=== PATIENT | male | born 1970 | race Hispanic/Latino ===

== ENCOUNTER 2017-09-02 15:25 | Inpatient (IN) | payer OTHER ==
[2017-09-02] MEDS ORDERED: ASPIRIN PO ONE (16:24)
[2017-09-02 16:48] LABS: Basophils # (Auto) 0.1 K/mm3 (0.0-0.1); Basophils % (Auto) 0.6 % (0.0-1.8); Eosinophils # (Auto) 0.1 K/mm3 (0.0-0.4); Eosinophils % (Auto) 0.7 % (0.0-4.3); Hematocrit 43.1 % (35.5-45.6); Hemoglobin 14.2 gm/dl (11.8-15.2); Lymphocytes # (Auto) 1.5 K/mm3 (1.2-5.4); Lymphocytes % (Auto) 13.9 % (13.4-35.0); Mean Corpuscular HGB Conc 33 % (32-34); Mean Corpuscular Hemoglobin 28 pg (28-32); Mean Corpuscular Volume 85 fl (84-94); Monocytes # (Auto) 0.7 K/mm3 (0.0-0.8); Platelet Count 235 K/mm3 (140-440); Red Blood Count 5.07 M/mm3 (3.65-5.03); Red Cell Distribution Width 15.1 % (13.2-15.2)
--- NOTE | 2017-09-02 17:07 | Emergency Department Report ---
ED General Adult HPI - General Chief complaint: Chest Pain Stated complaint: CHEST PAIN Time Seen by Provider: 09/02/17 16:33 Source: patient, staffing and scheduling coordinator Mode of arrival: Stretcher Limitations: No Limitations - History of Present Illness Initial comments: 47-year-old diabetic with history of chest pain evaluation 10 years ago at [facility] doesn't remember the doctor's ,patient says they did it as a preop for an amputation for dm toes, has some kind of stress test he says he never followed up but they did end up performing surgery so he thinks was okay. He started with a chest pain syndrome today around 1:00 started getting some symptoms into his left arm radiated down the fingers with some heaviness and tightness name short of breath symptoms were better now or they resolved when EMS picked him up and gave him an aspirin and some nitrates he is pain-free now , here eval cp and radiation into l arm, does hx of chronic b shoulder pain and oa, he's not sure if the sx into his l arm are related to that or new into l ue and into l wrist and fingers, no sob pain fress now no other complaints. -: hour(s), unknown Radiation: extremity Severity scale (0 -10): 0 Quality: other (pain-free now symptoms were heavy) Improves with: rest Worsens with: movement Associated Symptoms: chest pain, shortness of breath. denies: confusion, diaphoresis, fever/chills, headaches, loss of appetite, malaise, nausea/vomiting , rash, seizure, syncope, weakness - Related Data Allergies Allergy/AdvReac Type Severity Reaction Status Date / Time morphine Allergy Vomiting Verified 09/02/17 16:15 ED Review of Systems ROS: Stated complaint: CHEST PAIN Other details as noted in HPI Comment: All other systems reviewed and negative Eyes: denies: eye discharge, vision change ENT: denies: dental pain, hearing loss, epistaxis Respiratory: denies: cough, orthopnea, SOB with exertion, SOB at rest, stridor, wheezing Cardiovascular: chest pain, dyspnea on exertion. denies: palpitations, orthopnea, edema, syncope Endocrine: no symptoms reported Gastrointestinal: denies: nausea, vomiting, diarrhea, constipation, hematemesis , melena, hematochezia Musculoskeletal: denies: arthralgia, myalgia Neurological: denies: weakness, numbness, paresthesias, confusion, abnormal gait , vertigo Psychiatric: denies: auditory hallucinations, visual hallucinations, homicidal thoughts, suicidal thoughts Hematological/Lymphatic: denies: easy bruising ED Past Medical Hx - Past Medical History Hx Hypertension: Yes Hx Diabetes: Yes - Social History Smoking Status: Never Smoker Substance Use Type: None ED Physical Exam - General Limitations: No Limitations General appearance: alert, in no apparent distress, anxious - Head Head exam: Present: atraumatic, normocephalic - Eye Eye exam: Present: normal appearance, PERRL, EOMI - ENT ENT exam: Present: normal exam, normal orophraynx - Neck Neck exam: Present: normal inspection. Absent: tenderness, meningismus - Respiratory Respiratory exam: Present: rhonchi. Absent: respiratory distress, wheezes, rales, stridor, chest wall tenderness, accessory muscle use, decreased breath sounds, prolonged expiratory - Cardiovascular Cardiovascular Exam: Present: regular rate, normal rhythm, normal heart sounds - GI/Abdominal GI/Abdominal exam: Present: soft. Absent: distended, tenderness, guarding, rebound, rigid, mass, bruit, pulsatile mass - Extremities Exam Extremities exam: Present: normal inspection, tenderness, normal capillary refill, other (tenderness to the joints bilateral upper extremity ? forearm tenderness left). Absent: calf tenderness - Back Exam Back exam: Present: normal inspection. Absent: tenderness, CVA tenderness (R), CVA tenderness (L), muscle spasm, paraspinal tenderness, vertebral tenderness - Neurological Exam Neurological exam: Present: alert, oriented X3, CN II-XII intact, normal gait. Absent: motor sensory deficit - Psychiatric Psychiatric exam: Present: anxious. Absent: homicidal ideation, suicidal ideation ED Course Vital Signs 09/02/17 09/02/17 09/02/17 16:16 16:23 17:00 Temperature 98.0 F Pulse Rate 91 H 90 Respiratory 18 15 15 Rate Blood Pressure 135/80 Blood Pressure 127/85 [Right] O2 Sat by Pulse 97 99 Oximetry 09/02/17 22:01 Temperature Pulse Rate 89 Respiratory Rate Blood Pressure 130/76 Blood Pressure [Right] O2 Sat by Pulse Oximetry - Reevaluation(s) Reevaluation #1: 09/02/17 22:21 Patient was pain-free and ED EKG was nondiagnostic however trop was slightly elevated.case was discussed with Dr. Baldwin and Dr. Ugalde of hospital service , Dr. Ugalde did evaluate the patient in ED ED Medical Decision Making - Lab Data Result diagrams: 09/02/17 16:29 09/02/17 16:29 - EKG Data -: EKG Interpreted by Me EKG shows normal: sinus rhythm - EKG Data Interpretation: nonspecific ST-T wave alla - Radiology Data Radiology results: report reviewed - Medical Decision Making Chest x-ray no acute process EKG nondiagnostic. Patient is pain-free. He'll need further workup for chest pain in a diabetic patient that is worrisome for angina. Symptoms were present for approximately 30 minutes to an hour and half according to the patient and will need rule out for ACS and further evaluation Critical care attestation.: If time is entered above; I have spent that time in minutes in the direct care of this critically ill patient, excluding procedure time. ED Disposition Clinical Impression: Chest pain Disposition: DC-09 OP ADMIT IP TO THIS HOSP Is pt being admited?: Yes Condition: Stable Instructions: Chest Pain (ED) Referrals: PRIMARY CAREMD [Primary Care Provider] - 3-5 Days Time of Disposition: 22:25
[2017-09-02 17:08] LABS: BUN/Creatinine Ratio 22; Blood Urea Nitrogen 24 mg/dL (9-20); Calcium 9.1 mg/dL (8.4-10.2); Hemolysis Index 31
[2017-09-02] MEDS ORDERED: NITRO-BID 2% TP ONE ×2 (18:21→21:50)
--- NOTE | 2017-09-02 19:21 | XRay Report ---
FINAL REPORT EXAM: XR CHEST ROUTINE 2V HISTORY: cp TECHNIQUE: Chest, two views PRIORS: None. FINDINGS: The heart size is normal. Mediastinal contours are normal. Pulmonary vasculature is not congested. The lungs are clear. There are no pleural effusion seen. There is no evidence of pneumothorax. IMPRESSION: There is no acute abnormality identified.
[2017-09-02] MEDS ORDERED: PERCOCET 5/325 PO ONE (21:49)
[2017-09-02] MEDS ORDERED: PERCOCET 5/325 ONE (21:50)
[2017-09-02] MEDS ORDERED: TYLENOL PO PRN (22:48)
[2017-09-02] MEDS ORDERED: ZOFRAN IV PRN (22:48)
[2017-09-02] MEDS ORDERED: DULCOLAX PR PRN (22:48)
[2017-09-02] MEDS ORDERED: D50W (25GM) Syringe IV PRN (22:48)
[2017-09-02] MEDS ORDERED: MILK OF MAGNESIA PO PRN (22:48)
--- NOTE | 2017-09-02 22:52 | History and Physical Report ---
History of Present Illness Date of examination: 09/02/17 History of present illness: 47-year-old man with a history of hypertension, diabetes, obesity, see emergency room with complaints of chest pain, left chest radiating to the left arm, described as aching feeling, constant, symptoms started today, intensity 5/ 10, he cannot identify exacerbating or relieving factors. Admits to shortness of breath, no nausea vomiting, diaphoresis or palpitation. Review Of Systems: Constitutional: no weight loss Ears, eyes, nose, mouth and throat: no nasal congestion, no nasal discharge, no sinus pressure, blurry vision, diplopia Neck: No neck pain or rigidity. Cardiovascular: No palpitations Respiratory: No cough Gastrointestinal: No abdominal pain, hematochezia Genitourinary : no dysuria, frequency , hematuria Musculoskeletal: no muscle ache Integumentary: no rash, no pruritis Neurological: no parathesias, focal weakness Endocrine: no cold or heat intolerance, no polyuria or polydipsia Hematologic/Lymphatic: no easy bruising, no easy bleeding, no gland swelling Allergic/Immunologic: no urticaria, no angioedema. PAST MEDICAL HISTORY: Hypertension, diabetes, obesity PAST SURGICAL HISTORY: toes amputated from the left foot SOCIAL HISTORY: Social alcohol, no tobacco or drugs FAMILY HISTORY: Hypertension Medications and Allergies Allergies Allergy/AdvReac Type Severity Reaction Status Date / Time morphine Allergy Vomiting Verified 09/02/17 16:15 Exam - Physical Exam Narrative exam: Gen. appearance: Patient lying in bed, no apparent distress HEENT: Normocephalic, atraumatic, pupils equally round and reactive to light, extraocular movement intact, and no sclericterus,. No JVD or thyromegaly or nodule,neck supple, no carotid bruit ,mucous membranes moist, no exudate or erythema Heart: S1, S2, regular rate and rhythm Lungs: Clear to auscultation bilaterally, breathing comfortable Abdomen: Positive bowel sounds, nontender, nondistended, no organomegaly Extremity: No edema, cyanosis, clubbing Skin: No rash, nodules, warm, dry Neuro: Oriented 3, cranial nerves II-12 intact, speech is fluent, motor and sensory intact - Constitutional Vitals: Temp Pulse Resp BP Pulse Ox 98.0 F 89 15 130/76 99 09/02/17 16:16 09/02/17 22:01 09/02/17 17:00 09/02/17 22:01 09/02/17 16:23 Results - Labs CBC & Chem 7: 09/02/17 16:29 09/02/17 16:29 Labs: Abnormal lab results 09/02/17 09/02/17 09/02/17 Range/Units 16:29 16:29 16:34 RBC 5.07 H (3.65-5.03) M/mm3 Seg Neutrophils % 77.8 H (40.0-70.0) % Seg Neutrophils # 8.2 H (1.8-7.7) K/mm3 Sodium 130 L (137-145) mmol/L Chloride 92.5 L (98-107) mmol/L Carbon Dioxide 21 L (22-30) mmol/L BUN 24 H (9-20) mg/dL Glucose 438 H (75-100) mg/dL POC Glucose 389 H (70-105) - Imaging and Cardiology EKG: image reviewed Chest x-ray: image reviewed Assessment and Plan Assessment Chest pain, rule out ACS Hypertension Diabetes Plan Admit to medicine Check cardiac enzymes, stress test, percocet for pain Check fingersticks, start sliding scale DVT prophalaxis
[2017-09-03] MEDS ORDERED: PNEUMOVAX 23 IM ONE ×2 (02:40→12:00)
[2017-09-03] MEDS ORDERED: Fluarix Quad 2017-2018(36 MOS+ IM ONE ×2 (02:40→12:00)
[2017-09-03 03:24] LABS: Basophils # (Auto) 0.1 K/mm3 (0.0-0.1); Basophils % (Auto) 0.6 % (0.0-1.8); Eosinophils # (Auto) 0.1 K/mm3 (0.0-0.4); Hematocrit 38.3 % (35.5-45.6); Hemoglobin 12.9 gm/dl (11.8-15.2); Lymphocytes % (Auto) 21.2 % (13.4-35.0); Mean Corpuscular HGB Conc 34 % (32-34); Mean Corpuscular Hemoglobin 28 pg (28-32); Mean Corpuscular Volume 84 fl (84-94); Monocytes # (Auto) 0.8 K/mm3 (0.0-0.8); Monocytes % (Auto) 8.6 % (0.0-7.3); Platelet Count 213 K/mm3 (140-440); Red Blood Count 4.55 M/mm3 (3.65-5.03); Red Cell Distribution Width 14.9 % (13.2-15.2)
[2017-09-03] MEDS ORDERED: DIPRIVAN 10 MG/ML 1,000 MG/100 ML BOTTLE IV ONE (03:24)
[2017-09-03] MEDS ORDERED: NACL 0.9% 1000 ML 1,000 ML ONE (03:37)
[2017-09-03 03:44] LABS: Calcium 8.2 mg/dL (8.4-10.2)
[2017-09-03] MEDS ORDERED: LEXISCAN IV ONE ×2 (09:33)
[2017-09-03] MEDS: NOVOLOG SUB-Q SCH ×4 (11:43→22:40)
[2017-09-03] MEDS: LOVENOX SUB-Q SCH (12:00)
--- NOTE | 2017-09-03 12:02 | Consultation ---
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 He is previously unknown to our practice. He presented with complaints of chest pain since 12PM yesterday. He describes his chest pain as a left-sided constant aching pain which radiated down his left arm. The pain persisted until he received SL nitroglycerin. On evaluation, he denies chest pain but reports that his left arm pain and numbness persists. He denies any SOB, palpitations, n/v, diaphoresis, dizziness or syncope. This AM, he underwent lexiscan MPI stress test which showed inferolateral ischemia and thus cardiology has been consulted. Past History Past Medical History: diabetes, hypertension Past Surgical History: Other (LLE toe amputations) Medications and Allergies Allergies Allergy/AdvReac Type Severity Reaction Status Date / Time morphine Allergy Vomiting Verified 09/02/17 16:15 Active Meds: Active Medications Acetaminophen (Tylenol) 650 mg PO Q4H PRN PRN Reason: Pain MILD(1-3)/Fever >100.5/KRISHNAMURTHY Bisacodyl (Dulcolax) 10 mg IN QDAY PRN PRN Reason: Constipation unrelieved by MOM Dextrose (D50w (25gm) Syringe) 50 ml IV PRN PRN PRN Reason: Hypoglycemia Enoxaparin Sodium (Lovenox) 40 mg SUB-Q QDAY RODRÍGUEZ Insulin Aspart (Novolog) 0 units SUB-Q ACHS RODRÍGUEZ PRN Reason: Protocol Last Admin: 09/03/17 11:43 Dose: Not Given Magnesium Hydroxide (Milk Of Magnesia) 30 ml PO Q4H PRN PRN Reason: Constipation Ondansetron HCl (Zofran) 4 mg IV Q8H PRN PRN Reason: N/V unrelieved by Reglan Oxycodone/Acetaminophen (Percocet 5/325) 1 tab PO Q4H PRN PRN Reason: Pain, Moderate (4-6) Review of Systems Constitutional: no weight loss, no weight gain, no fever, no chills, no sweats Ears, nose, mouth and throat: no ear pain, no nose pain, no sinus pressure, no sinus pain Cardiovascular: chest pain, no orthopnea, no palpitations, no rapid/irregular heart beat, no edema, no syncope, no lightheadedness, no shortness of breath, no dyspnea on exertion, no leg edema Respiratory: no cough, no shortness of breath, no dyspnea on exertion, no congestion, no wheezing, no pain on inspiration Gastrointestinal: no abdominal pain, no nausea, no vomiting, no diarrhea, no constipation, no change in bowel habits Genitourinary Male: no dysuria, no hematuria, no flank pain, no discharge, no urinary frequency, no urinary hesitancy Musculoskeletal: arm numbness/tingling (LUE), no neck stiffness, no neck pain, no shooting arm pain, no low back pain, no shooting leg pain, no leg numbness/ tingling, no redness of joints Integumentary: no rash, no pruritis, no redness, no sores, no wounds Neurological: no head injury, no paralysis, no weakness, no parathesias, no numbness, no tingling, no seizures, no syncope Psychiatric: no anxiety Endocrine: no cold intolerance, no heat intolerance Hematologic/Lymphatic: no easy bruising, no easy bleeding, no lymphadenopathy Allergic/Immunologic: no urticaria, no wheezing, no persistent infections Physical Examination Vital Signs Temp Pulse Resp BP Pulse Ox 98.0 F 91 H 18 135/80 97 09/02/17 16:16 09/02/17 16:16 09/02/17 16:16 09/02/17 16:16 09/02/17 16:16 General appearance: no acute distress HEENT: Positive: PERRL, Normocephaly, Mucus Membranes Moist Neck: Positive: neck supple, trachea midline Cardiac: Positive: Reg Rate and Rhythm, S1/S2 Lungs: Positive: clear to auscultation Neuro: Positive: Grossly Intact, Cranial Nerve 2-12 Intact Abdomen: Positive: Soft. Negative: Tender Skin: Positive: Clear. Negative: Rash, Wound Musculoskeletal: No Fluid Collection, No Pain, Normal Range of Motion Extremities: Absent: edema Results 09/03/17 03:13 09/03/17 03:13 CBC 09/02/17 09/03/17 Range/Units 16:29 03:13 WBC 10.6 9.3 (4.5-11.0) K/mm3 RBC 5.07 H 4.55 (3.65-5.03) M/mm3 Hgb 14.2 12.9 (11.8-15.2) gm/dl Hct 43.1 38.3 (35.5-45.6) % Plt Count 235 213 (140-440) K/mm3 Lymph # 1.5 2.0 (1.2-5.4) K/mm3 [place] # 0.7 0.8 (0.0-0.8) K/mm3 Eos # 0.1 0.1 (0.0-0.4) K/mm3 Baso # 0.1 0.1 (0.0-0.1) K/mm3 Comprehensive Metabolic Panel 09/02/17 09/03/17 Range/Units 16:29 03:13 Sodium 130 L 131 L (137-145) mmol/L Potassium 4.2 3.9 (3.6-5.0) mmol/L Chloride 92.5 L 95.7 L (98-107) mmol/L Carbon Dioxide 21 L 21 L (22-30) mmol/L BUN 24 H 28 H (9-20) mg/dL Creatinine 1.1 1.3 (0.8-1.5) mg/dL Glucose 438 H 398 H (75-100) mg/dL Calcium 9.1 8.2 L (8.4-10.2) mg/dL - Imaging and Cardiology EKG: report reviewed, image reviewed EKG interpretations - Telemetry EKG Rhythm: Sinus Rhythm - EKG Sinus rhythms and dysrhythmias: sinus rhythm Assessment and Plan Assessment: Chest pain, atypical - ECG with no acute ischemic changes; Avtar negative for AMI. Abnormal stress test HTN DM Hyponatremia Plan: Coronary angiography recommended for definitive diagnosis. Indications, potential risks and benefits of LHC reviewed with pt and he is agreeable to proceed with LHC in AM. NPO after MN. The patient has been seen in conjunction with Dr. Bettencourt who agrees with the assessment and plan of care.
[2017-09-03] MEDS: PERCOCET 5/325 PO PRN ×3 (12:52→21:20)
[2017-09-03] MEDS ORDERED: NACL 0.9% 500 ML 500 ML IV SCH (13:00)
[2017-09-03] MEDS: LOPRESSOR PO SCH ×2 (13:44→21:19)
--- NOTE | 2017-09-03 14:32 | Progress Note ---
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 Resulted to the ER with complaints of chest discomfort as the p.m. since the day prior to admission left sided radiating down to the left arm persisted until patient received sublingual nitroglycerin. The patient underwent a stress test which was positive for possible inferior lateral ischemia. Although he is chest pain-free at this time. Chest pain with typical angina symptoms concerning for inferolateral ischemia * Continue aspirin, statin, obtain cardiac consultation for possible cath Hypertension * Continue metoprolol Diabetes mellitus with hyperglycemia * Add lantus at bedtime. Obtain full med rec Hyponatremia * Possible pseudohyponatremia in setting of Hyperglycemia, Will monitor Obesity * Weight loss counseling provided DVT and GI prophylaxis Plan of care discussed with the patient and also with the cardiology team History Interval history: Patient is seen today for: Chest pain Seen and examined at bedside; 24hour events reviewed; nursing staff ; no adverse overnight events reported to me; Denies any nausea, vomiting, diarrhea No fever noted blood pressure controlled. Stress test result was positive today. Hospitalist Physical - Physical exam Narrative exam: VITAL SIGNS: Reviewed. GENERAL: The patient appeared well nourished and normally developed. Obese. Vital signs as documented. HEAD: No signs of head trauma. EYES: Pupils are equal. Extraocular motions intact. EARS: Hearing grossly intact. MOUTH: Oropharynx is normal. NECK: No adenopathy, no JVD. CHEST: Chest with clear breath sounds bilaterally. No wheezes, rales, or rhonchi. CARDIAC: Regular rate and rhythm. S1 and S2, without murmurs, gallops, or rubs. VASCULAR: No Edema. Peripheral pulses normal and equal in all extremities. ABDOMEN: Soft, without detectable tenderness. No sign of distention. No rebound or guarding, and no masses palpated. Bowel Sounds normal. MUSCULOSKELETAL: Good range of motion of all major joints. Extremities without clubbing, cyanosis or edema. NEUROLOGIC EXAM: Alert and oriented x 3. No focal sensory or strength deficits. Speech normal. Follows commands. PSYCHIATRIC: Mood normal. SKIN: No rash or lesions. - Constitutional Vitals: Temp Pulse Resp BP Pulse Ox 98.0 F 88 17 165/100 99 09/02/17 16:16 09/03/17 13:44 09/03/17 12:52 02/15/18 13:44 09/03/17 07:56 General appearance: Present: no acute distress Results - Labs CBC & Chem 7: 09/03/17 03:13 09/03/17 03:13 Labs: Laboratory Last Values WBC 9.3 K/mm3 (4.5-11.0) 09/03/17 03:13 RBC 4.55 M/mm3 (3.65-5.03) 09/03/17 03:13 Hgb 12.9 gm/dl (11.8-15.2) 09/03/17 03:13 Hct 38.3 % (35.5-45.6) 09/03/17 03:13 MCV 84 fl (84-94) 09/03/17 03:13 MCH 28 pg (28-32) 09/03/17 03:13 MCHC 34 % (32-34) 09/03/17 03:13 RDW 14.9 % (13.2-15.2) 09/03/17 03:13 Plt Count 213 K/mm3 (140-440) 09/03/17 03:13 Lymph % (Auto) 21.2 % (13.4-35.0) 09/03/17 03:13 [place] % (Auto) 8.6 % (0.0-7.3) H 09/03/17 03:13 Eos % (Auto) 1.0 % (0.0-4.3) 09/03/17 03:13 Baso % (Auto) 0.6 % (0.0-1.8) 09/03/17 03:13 Lymph # 2.0 K/mm3 (1.2-5.4) 09/03/17 03:13 [place] # 0.8 K/mm3 (0.0-0.8) 09/03/17 03:13 Eos # 0.1 K/mm3 (0.0-0.4) 09/03/17 03:13 Baso # 0.1 K/mm3 (0.0-0.1) 09/03/17 03:13 Seg Neutrophils % 68.6 % (40.0-70.0) 09/03/17 03:13 Seg Neutrophils # 6.4 K/mm3 (1.8-7.7) 09/03/17 03:13 Sodium 131 mmol/L (137-145) L 09/03/17 03:13 Potassium 3.9 mmol/L (3.6-5.0) 09/03/17 03:13 Chloride 95.7 mmol/L (98-107) L 09/03/17 03:13 Carbon Dioxide 21 mmol/L (22-30) L 09/03/17 03:13 Anion Gap 18 mmol/L 09/03/17 03:13 BUN 28 mg/dL (9-20) H 09/03/17 03:13 Creatinine 1.3 mg/dL (0.8-1.5) 09/03/17 03:13 Estimated GFR 59 ml/min 09/03/17 03:13 BUN/Creatinine Ratio 22 % 09/03/17 03:13 Glucose 398 mg/dL (75-100) H 09/03/17 03:13 POC Glucose 362 (70-105) H 09/03/17 12:28 Ketones Quantitative Negative (Negative) 09/02/17 18:00 Calcium 8.2 mg/dL (8.4-10.2) L 09/03/17 03:13 Troponin T 0.022 ng/mL (0.00-0.029) 09/02/17 23:17 NT-Pro-B Natriuret Pep 350.5 pg/mL (0-450) 09/02/17 17:08
[2017-09-03] MEDS: TESSALON PERLES PO SCH ×2 (14:39→21:19)
[2017-09-03] MEDS ORDERED: LEVEMIR SUB-Q SCH (22:00)
--- NOTE | 2017-09-04 00:07 | Treadmill Report ---
INDICATION FOR PROCEDURE: Chest pain. Informed consent was obtained. Vasodilator stress was achieved with the intravenous administration of 0.4 mg of Lexiscan. Rest and stress nuclear cardiac imaging were performed per protocol. Following intravenous administration of 10 and 28 mCi of technetium-99m Myoview respectively. Gated SPECT imaging demonstrates a post-stress left ventricular ejection fraction of 62%. There is reduced systolic thickening of the inferolateral wall. Myocardial perfusion imaging demonstrates no significant cavity change between stress and rest. There is a medium-sized moderately intense, partially reversible inferolateral perfusion abnormality. Nuclear cardiac imaging demonstrates grossly normal post-stress left ventricular systolic function. 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 JOB# [id number] RUPALI/ANALISA
[2017-09-04] MEDS: PERCOCET 5/325 PO PRN ×3 (01:44→11:29)
[2017-09-04 06:01] LABS: INR 0.96 (0.87-1.13)
[2017-09-04 06:02] LABS: Partial Thromboplastin Time 36.1 Sec. (24.2-36.6)
[2017-09-04 06:14] LABS: BUN/Creatinine Ratio 21; Blood Urea Nitrogen 25 mg/dL (9-20); Calcium 8.3 mg/dL (8.4-10.2); Chol/HDL Ratio 6.07 %; HDL Cholesterol 27 mg/dL (40-59); Hemolysis Index 6; LDL Cholesterol,Direct 78 mg/dL (50-130)
[2017-09-04] MEDS: TESSALON PERLES PO SCH (06:37)
[2017-09-04] MEDS: NOVOLOG SUB-Q SCH ×2 (06:38→12:51)
[2017-09-04] MEDS ORDERED: HEPARIN 10,000 UNITS/10 ML ONE (08:18)
[2017-09-04] MEDS ORDERED: HEPARIN/NS 5000 UNIT/500ML(CATH LAB) 1,000 ML IR ONE (08:18)
[2017-09-04] MEDS ORDERED: NITROGLYCERIN SYRINGE 3 ML ONE (08:19)
[2017-09-04] MEDS ORDERED: XYLOCAINE 2% INFILTRATI ONE (08:19)
[2017-09-04] MEDS ORDERED: CALAN ONE (08:19)
[2017-09-04] MEDS ORDERED: SUBLIMAZE ONE (08:20)
[2017-09-04] MEDS ORDERED: NACL 0.9% 500 ML 500 ML ONE (08:20)
[2017-09-04] MEDS ORDERED: VERSED ONE (08:20)
--- NOTE | 2017-09-04 09:38 | Progress Note ---
Assessment and Plan Assessment: Chest pain, atypical - currently resolved; ECG with no acute ischemic changes; Avtar negative for AMI. CAD HTN DM Hyponatremia Plan: S/p [facility] this AM which showed triple vessel CAD. Pt to tx to [place] for possible CABG. The patient has been seen in conjunction with Dr. Bettencourt who agrees with the assessment and plan of care. Subjective Date of service: 09/04/17 Principal diagnosis: cp Interval history: pt for [facility] this AM Objective Last Vital Signs Temp 97.6 F 09/04/17 04:08 Pulse 89 09/04/17 04:08 Resp 18 09/03/17 23:03 BP 130/78 09/04/17 04:08 Pulse Ox 95 09/04/17 04:08 - Physical Examination General: No Apparent Distress HEENT: Positive: PERRL, Normocephaly, Mucus Membranes Moist Neck: Positive: neck supple, trachea midline Cardiac: Positive: Reg Rate and Rhythm, S1/S2 Lungs: Positive: clear to auscultation Neuro: Positive: Grossly Intact, Cranial Nerve 2-12 Intact Abdomen: Positive: Soft. Negative: Tender Skin: Positive: Clear. Negative: Rash, Wound Musculoskeletal: No Fluid Collection, No Pain, Normal Range of Motion Extremities: Absent: edema - Labs and Meds Coagulation 09/04/17 Range/Units 04:57 PT 13.3 (12.2-14.9) Sec. INR 0.96 (0.87-1.13) APTT 36.1 (24.2-36.6) Sec. Lipids 09/04/17 Range/Units 04:57 Triglycerides 296 H (2-149) mg/dL Cholesterol 164 (50-199) mg/dL HDL Cholesterol 27 L (40-59) mg/dL Cholesterol/HDL Ratio 6.07 % Comprehensive Metabolic Panel 09/04/17 Range/Units 04:57 Sodium 135 L (137-145) mmol/L Potassium 4.5 (3.6-5.0) mmol/L Chloride 96.1 L (98-107) mmol/L Carbon Dioxide 20 L (22-30) mmol/L BUN 25 H (9-20) mg/dL Creatinine 1.2 (0.8-1.5) mg/dL Glucose 358 H (75-100) mg/dL Calcium 8.3 L (8.4-10.2) mg/dL - Imaging and Cardiology EKG: report reviewed, image reviewed - EKG Sinus rhythms and dysrhythmias: sinus rhythm
[2017-09-04] MEDS ORDERED: ASPIRIN PO SCH (10:00)
--- NOTE | 2017-09-04 10:57 | Discharge Summary ---
Providers - Providers Date of Admission: 09/02/17 22:48 Attending physician: EUGENIA LÓPEZ MD 09/03/17 12:09 Consult to Physician [CONS] Routine Consulting Provider: PREMA STANLEY Reason For Exam: postive stress test Place consult to:: [facility] Notified:: eliecer Comment:: added to list 09/04/17 09:32 Consult to Cardiac Rehabilitation [CONS] Routine Reason For Exam: Cardiac Rehab Evaluation Primary care physician: KELLIE OMALLEY MD Hospitalization Condition: Stable Hospital course: Chest pain, atypical - currently resolved; ECG with no acute ischemic changes; Avtar negative for AMI. CAD HTN DM Hyponatremia Plan: S/p LHC this AM which showed triple vessel CAD. Pt to tx to [place] for possible CABG. Disposition: DC/TX-70 ANOTHER TYPE HLTHCARE Exam - Constitutional Vitals: Temp Pulse Resp BP Pulse Ox 97.6 F 89 18 130/78 95 09/04/17 04:08 09/04/17 04:08 09/03/17 23:03 09/04/17 04:08 09/04/17 04:08 Plan Activity: advance as tolerated, fall precautions Diet: low cholesterol, diabetic Special Instructions: record daily weights, record daily BP diary, record blood sugar diary Additional Instructions: FOLLOW UPS. PER DISCHARGING PHYSICIANS IN [place] Follow up with: KELLIE OMALLEY MD [Primary Care Provider] - 3-5 Days
[2017-09-04] MEDS ORDERED: LEVEMIR SUB-Q SCH (10:58)
[2017-09-04] MEDS: LOPRESSOR PO SCH (11:29)
[2017-09-04] MEDS: LOVENOX SUB-Q SCH (11:31)
--- NOTE | 2017-09-04 11:57 | Cardiac Catherization Report ---
REFERRING PHYSICIAN: Shamar Bettencourt M.D. INDICATION FOR PROCEDURE: The patient is a pleasant 47-year-old gentleman with uncontrolled diabetes, chronic kidney disease, developed shortness of breath, and had abnormal stress test, referred for left heart catheterization. Risks, benefits, alternatives explained at length prior to obtaining informed consent. PROCEDURE IN DETAIL: The patient was brought to the catheterization lab in a postabsorptive state, prepped in a sterile fashion. Kiko's test in right hand was normal. A 2 mL of 2% lidocaine used to anesthetize the right wrist. A standard 6-Portuguese hydrophilic sheath used to cannulate the right radial artery via modified Seldinger technique. All exchanges were performed to exchange a J-tip guidewire. A JL3.5 catheter used to engage left main. No dampening or ventricularization. Cineangiography performed in all projections. JR4 catheter was used to cross the aortic valve under fluoroscopic guidance. Left ventriculography performed in 30 OLIVARES and 30 SPANISH projection via hand injections. Catheter flushed. Manual pullback performed with continuous pressure monitoring. Catheter used to engage the right coronary. No dampening or ventricularization. Cineangiography performed in all projections. DATA: Aortic pressure is 130/90, LV pressure is 140. LVP of 25 mmHg. Left ventriculography revealed [id number] global left ventricular hypokinesis, estimated ejection fraction of 40-45%. No evidence of aortic stenosis. CORONARY ANATOMY: This is a right dominant system. Right coronary is a moderate sized vessel, courses AV groove, distally bifurcates in the posterior descending and posterolateral branches to 90% stenosis proximally and 90% stenosis in the mid segment. Left main without significant disease, bifurcates left anterior descending and left circumflex. Left circumflex, moderate sized vessel, courses AV groove, occluded in the mid segment. Extensive right to left collaterals are identified. LAD is a moderate sized vessel, courses anterior intergroove, wraps around the apex. A 90% mid LAD stenosis at the bifurcation of a moderate sized diagonal, diffuse 90% mid LAD stenosis as well. Good targets noted. CONCLUSIONS: 1. Severe and diffuse triple vessel coronary artery disease with a 90% proximal and mid LAD stenosis, 100% chronic total occlusion of the mid left circumflex, 90% proximal and mid right coronary stenosis. Extensive right to left collaterals. 2. [id number] global left ventricular hypokinesis, estimated ejection fraction 40-45%. 3. No aortic stenosis. Given the diffuse nature of disease, I believe complete revascularization is probably the best option with coronary bypass surgery. The patient will be transferred to [facility] for consideration of the same. Results of procedure and plan of care was explained at length with the patient. All questions and concerns were addressed. JOB# [id number] GENARO/NTS
[2017-09-04] MEDS ORDERED: Fluarix Quad 2017-2018(36 MOS+ IM ONE (12:00)
[2017-09-04] MEDS ORDERED: PNEUMOVAX 23 IM ONE (12:00)
[2017-09-04 12:41] VITALS: BP 136/80
--- NOTE | 2017-09-04 13:17 | Cardiac Catherization Report ---
ADDENDUM Moderate sedation was used and directly supervised and monitored by myself, with administration of fentanyl and Versed. We started at 8:57 a.m. and case ended at 9:22 a.m. JOB# [id number] SBM/NTS
== END 2017-09-04 11:45 | disposition short-term general hospital (02) | DRG 287 ==
LOC: ED 15:25 → 4A 22:48
PROVIDERS: ADMIT Internal Medicine; ATTEND Internal Medicine
PROC: 3E0234Z Introduction of Serum, Toxoid and Vaccine into Muscle, Percutaneous Approach (ICD-10-PCS; 2017-09-03)
PROC: 4A023N7 Measurement of Cardiac Sampling and Pressure, Left Heart, Percutaneous Approach (ICD-10-PCS; principal; 2017-09-04)
PROC: B2111ZZ Fluoroscopy of Multiple Coronary Arteries using Low Osmolar Contrast (ICD-10-PCS; 2017-09-04)
PROC: B2151ZZ Fluoroscopy of Left Heart using Low Osmolar Contrast (ICD-10-PCS; 2017-09-04)
DX: R07.89 Other chest pain (principal); E87.1 Hypo-osmolality and hyponatremia; I10 Essential (primary) hypertension; E11.9 Type 2 diabetes mellitus without complications; I25.10 Atherosclerotic heart disease of native coronary artery without angina pectoris; J44.9 Chronic obstructive pulmonary disease, unspecified; E66.9 Obesity, unspecified; Z68.34 Body mass index [BMI] 34.0-34.9, adult; Z89.422 Acquired absence of other left toe(s); Z88.5 Allergy status to narcotic agent; Z82.49 Family history of ischemic heart disease and other diseases of the circulatory system; Z23 Encounter for immunization
CPT/HCPCS: 36415; 71046; 78452; 80048; 80061; 82010; 82962; 83880; 84484; 85025; 85610; 85730; 90686; 90732; 93005; 93010; 93017; 93458; 94760; A9270-GY; A9502; C1887; C1894; J1644; J1650; J1815; J1818; J2250; J2704; J2785; J2930; J3010; J7030; J7040; Q9967